=== PATIENT | female | born 1995 | race African-American/Black ===

== ENCOUNTER 2021-03-21 23:57 | Inpatient (IN) | payer MEDICAID ==
[~2021-03-21] VITALS: Ht 162.6 cm; Wt 64.0 kg
[~2021-03-21 23:57] MED LIST: AMLO10TA4 PO; CARV12.545 PO; CLON1PAT11 TP; ELVI1TAB3 PO; FURO20TA4 PO; HYDR100T26 PO
[2021-03-22] MEDS ORDERED: ONDANSETRON HCL 4MG/2ML INJ IV ONE (00:30)
[2021-03-22] MEDS ORDERED: MORPHINE SULFATE 4 MG/ML CPJ (NOT FOR IM USE) IV ONE (00:30)
[2021-03-22] MEDS ORDERED: FAMOTIDINE 20MG/2ML VIAL IV ONE (00:30)
[2021-03-22 01:04] LABS: EOSINOPHILS % 4.9 % (0.0-5.0); HEMATOCRIT. 24.2 % (36.0-48.0); HEMOGLOBIN. 8.2 g/dL (12.0-16.0); LYMPHOCYTES % 9.2 % (20.0-50.0); MEAN CORPUSCULAR HEMOGLOBIN 32.8 pg (28.0-32.0); MEAN CORPUSCULAR VOLUME 96.4 fL (81.0-99.0); MEAN PLATELET VOLUME 7.9 fl (7.4-10.4); MONOCYTES % 13.8 % (2.0-8.0); NEUTROPHILS % 71.1 % (40.0-76.0); PLATELET 139 x1000/uL (130-400); RED BLOOD CELL COUNT 2.51 mill/uL (4.2-5.4); RED CELL DISTRIBUTION WIDTH 14.9 % (11.6-14.6)
[2021-03-22 01:08] LABS: CHLORIDE 109 mEq/L (98-107)
[2021-03-22 01:28] LABS: HCG SCREEN NEGATIVE
[2021-03-22] MEDS ORDERED: MORPHINE SULFATE 2 MG/ML CPJ (NOT FOR IM USE) IV PRN (05:00)
[2021-03-22] MEDS ORDERED: MAGNESIUM/ALUMINUM HYDROXIDE/SIMETHICONE 30ML UDC PO PRN (05:00)
[2021-03-22] MEDS ORDERED: CLONIDINE 0.1MG TABLET PO PRN (05:00)
[2021-03-22] MEDS ORDERED: GUAIFENESIN 200MG/10ML SUGAR FREE UDC PO PRN (05:00)
[2021-03-22] MEDS ORDERED: ONDANSETRON HCL 4MG/2ML INJ IV PRN (05:00)
[2021-03-22] MEDS ORDERED: DOCUSATE SODIUM 100MG CAPSULE PO PRN (05:00)
[2021-03-22] MEDS ORDERED: ACETAMINOPHEN 325MG TABLET PO PRN (05:00)
[2021-03-22] MEDS ORDERED: HYDROCODONE/ACETAMINOPHEN 5/325MG TABLET PO PRN (05:00)
[2021-03-22] MEDS ORDERED: NALOXONE HCL 0.4MG/ML VIAL IV PRN (05:15)
[2021-03-22] MEDS ORDERED: AMLODIPINE 10MG TABLET PO SCH (05:30)
[2021-03-22] MEDS ORDERED: FUROSEMIDE 20MG TABLET PO SCH (05:30)
[2021-03-22 05:33] VITALS: BP 167/113
[2021-03-22] MEDS ORDERED: CARVEDILOL 12.5MG TABLET PO SCH (06:00)
[2021-03-22] MEDS ORDERED: HYDRALAZINE HCL 100MG TABLET PO SCH (06:00)
[2021-03-22] MEDS ORDERED: ASPIRIN 81MG EC TABLET PO SCH (09:00)
== END 2021-03-22 08:35 | disposition left against medical advice (07) | DRG 203 ==
LOC: ER 23:57 → MICUSO 03-22 02:15 → EDBEDREQ 03-22 02:17 → EDBEDREQTM 03-22 02:17
PROVIDERS: ADMIT Hospitalist; ATTEND Hospitalist
DX: R07.9 Chest pain, unspecified (principal); I13.0 Hypertensive heart and chronic kidney disease with heart failure and stage 1 through stage 4 chronic kidney disease, or unspecified chronic kidney disease; I50.9 Heart failure, unspecified; N18.9 Chronic kidney disease, unspecified; Z99.2 Dependence on renal dialysis; Z53.29 Procedure and treatment not carried out because of patient's decision for other reasons
CPT/HCPCS: 36415; 71045; 80053; 84484; 84703; 85025; 93005; 99285; J2270; J2405; J3490

== ENCOUNTER 2021-04-28 01:38 | Emergency (ER) | payer MEDICAID ==
[~2021-04-28] VITALS: Ht 162.6 cm; Wt 63.0 kg
[2021-04-28] MEDS ORDERED: ONDANSETRON 4MG ODT PO ONE (02:45)
[2021-04-28] MEDS ORDERED: MORPHINE SULFATE 10 MG/ML CPJ IM ONE (02:45)
[2021-04-28 03:02] LABS: BASOPHILS % 1.5 % (0.0-2.0); EOSINOPHILS % 5.1 % (0.0-5.0); HEMATOCRIT. 30.3 % (36.0-48.0); HEMOGLOBIN. 9.8 g/dL (12.0-16.0); LYMPHOCYTES % 13.9 % (20.0-50.0); MEAN CORPUSCULAR HEMOGLOBIN 31.8 pg (28.0-32.0); MEAN CORPUSCULAR VOLUME 98.1 fL (81.0-99.0); MEAN PLATELET VOLUME 7.7 fl (7.4-10.4); MONOCYTES % 7.1 % (2.0-8.0); NEUTROPHILS % 72.4 % (40.0-76.0); PLATELET 200 x1000/uL (130-400); RED BLOOD CELL COUNT 3.09 mill/uL (4.2-5.4); RED CELL DISTRIBUTION WIDTH 16.1 % (11.6-14.6)
[2021-04-28 03:04] LABS: CHLORIDE 105 mEq/L (98-107)
[2021-04-28] MEDS ORDERED: HYDROCODONE/APAP 7.5/325MG 1 TAB TABLET PO ONE (04:00)
[2021-04-28] MEDS ORDERED: HYDR-4001 MT (05:48)
[2021-04-28] MEDS ORDERED: CEPH500T MT (05:48)
[2021-04-28] MEDS ORDERED: IBUP-2029 MT (05:48)
[2021-04-28 06:05] VITALS: BP 116/66
== END 2021-04-28 06:06 | disposition home or self-care (01) ==
LOC: ER 01:38
DX: M79.601 Pain in right arm (principal); M79.89 Other specified soft tissue disorders; M79.641 Pain in right hand; M25.511 Pain in right shoulder; I13.2 Hypertensive heart and chronic kidney disease with heart failure and with stage 5 chronic kidney disease, or end stage renal disease; I50.9 Heart failure, unspecified; N18.6 End stage renal disease; Z99.2 Dependence on renal dialysis
CPT/HCPCS: 36415; 73080; 80053; 85025; 93971; 96372; 99285; J2270; Q0162; Z7610

== ENCOUNTER 2021-07-06 08:48 | Inpatient (IN) | payer MEDICAID ==
[~2021-07-06] VITALS: Ht 162.6 cm; Wt 79.8 kg
[~2021-07-06 08:48] MED LIST changes: -CARV12.545 PO; +CARV25TA47 MT; +ELVI1TAB3 MT; -ELVI1TAB3 PO; +HYDR-4001 MT; +IBUP-2029 MT; +OMEP40CA20 MT; +SODIUM CHLORIDE 0.9% 10ML VIAL ONE; +TRAM50TA3 MT; +VECURONIUM BROMIDE 10 MG/VIAL IV ONE
[2021-07-06] MEDS ORDERED: SODIUM CHLORIDE 0.9% 1000ML BAG (SEPSIS BOLUS) IV ONE (09:30)
[2021-07-06] MEDS ORDERED: LORAZEPAM 2MG/ML CPJ IV ONE ×2 (09:30→12:15)
[2021-07-06] MEDS ORDERED: HALOPERIDOL LACTATE 5MG/ML VIAL IM ONE (09:30)
[2021-07-06 09:47] LABS: BASOPHILS % 0.5 % (0.0-2.0); EOSINOPHILS % 1.5 % (0.0-5.0); HEMATOCRIT. 34.3 % (36.0-48.0); HEMOGLOBIN. 10.9 g/dL (12.0-16.0); LYMPHOCYTES % 18.1 % (20.0-50.0); MEAN CORPUSCULAR HEMOGLOBIN 30.9 pg (28.0-32.0); MEAN PLATELET VOLUME 6.9 fl (7.4-10.4); MONOCYTES % 11.4 % (2.0-8.0); NEUTROPHILS % 68.5 % (40.0-76.0); PLATELET 77 x1000/uL (130-400); RED BLOOD CELL COUNT 3.54 mill/uL (4.2-5.4); RED CELL DISTRIBUTION WIDTH 17.4 % (11.6-14.6)
[2021-07-06 09:53] LABS: CHLORIDE 108 mEq/L (98-107)
[2021-07-06 10:10] LABS: HCG SCREEN NEGATIVE
[2021-07-06] MEDS ORDERED: LABETALOL HCL 20MG/4ML CARPUJECT IV ONE (12:30)
[2021-07-06] MEDS ORDERED: LEVETIRACETAM 1000MG PREMIX 100 ML IV ONE (12:30)
[2021-07-06] MEDS ORDERED: ACETAMINOPHEN 650MG SUPP PR ONE (13:15)
[2021-07-06] MEDS ORDERED: HYDROCODONE/ACETAMINOPHEN 5/325MG TABLET PO PRN (14:00)
[2021-07-06] MEDS ORDERED: GUAIFENESIN 200MG/10ML SUGAR FREE UDC PO PRN (14:00)
[2021-07-06] MEDS ORDERED: ENOXAPARIN 40MG/0.4ML SYR SUBCUT SCH (14:00)
[2021-07-06] MEDS ORDERED: ACETAMINOPHEN 325MG TABLET PO PRN (14:00)
[2021-07-06] MEDS ORDERED: HYDRALAZINE 20MG/ML VIAL IV NR ×2 (14:45→18:45)
[2021-07-06 14:58] LABS: HEPATITIS B SURFACE ANTIGEN NEGATIVE
[2021-07-06] MEDS ORDERED: ENOXAPARIN 30MG/0.3ML SYR SUBCUT SCH (15:00)
[2021-07-06] MEDS ORDERED: ACETAMINOPHEN 650MG SUPP PR NR (19:00)
[2021-07-06] MEDS ORDERED: NICARDIPINE 40MG/200ML PREMIX 200 ML IV STA (19:16)
[2021-07-06] MEDS ORDERED: LORAZEPAM 2MG/ML CPJ ONE ×3 (19:22→19:32)
[2021-07-06] MEDS ORDERED: LORAZEPAM 2MG/ML CPJ IV PRN (19:30)
[2021-07-06] MEDS ORDERED: LEVETIRACETAM 500MG PREMIX 100 ML IV ONE (19:45)
[2021-07-06] MEDS ORDERED: PROPOFOL 200MG/20ML VIAL IV ONE (20:30)
[2021-07-06] MEDS ORDERED: PROPOFOL 10MG/ML 100ML 100 ML IV NR (20:30)
[2021-07-06] MEDS ORDERED: PROPOFOL 10MG/ML 100ML 100 ML IV PRN ×2 (20:30→23:00)
[2021-07-06] MEDS ORDERED: LEVETIRACETAM 500MG PREMIX 100 ML IV NR (21:00)
[2021-07-06 21:34] LABS: BG BASE EXCESS -10.5 mmol/L (-2.0-2.0); BG CARBOXYHEMOGLOBIN 0.5 % (0.5-1.5); BG DEOXYHEMOGLOBIN 3.9 % (0.0-5.0); BG FRACTION INSPIRED OXYGEN 50; BG HCO3 ACT 15.9 mmol/L (22.0-26.0); BG METHEMOGLOBIN 0.5 % (0.0-1.5); BG OXYGEN SATURATION 96.1 % (92.0-98.5); BG OXYHEMOGLOBIN 95.1 % (94.0-97.0); BG PCO2 37.3 mmHg (35.0-45.0); BG PH 7.248 (7.350-7.450); BG PO2 102.8 mmHg (75.0-100.0); BG TOTAL HEMOGLOBIN 11.5 g/dL (12.0-18.0); BG VENT MODE VENT - AC
[2021-07-06] MEDS ORDERED: PROPOFOL 10MG/ML 100ML 100 ML IV ONE (22:30)
[2021-07-06] MEDS ORDERED: FENTANYL CITRATE/PF 2,500 MCG in SODIUM CHLORIDE 0.9% 200 ML IV PRN (23:00)
[2021-07-06] MEDS ORDERED: MIDAZOLAM HCL 100 MG in DEXT 5% WATER 80 ML IV ONE (23:00)
[2021-07-06] MEDS ORDERED: IPRATROPIUM/ALBUTEROL 0.5-3(2.5)MG/3ML NEB HHN PRN (23:00)
[2021-07-06] MEDS ORDERED: NALOXONE HCL 0.4 MG/ML 1ML VIAL IV PRN (23:00)
[2021-07-07] MEDS: ACETAMINOPHEN 325MG TABLET PO PRN ×2 (03:23→09:19)
[2021-07-07] MEDS ORDERED: NICARDIPINE 100 MG in SODIUM CHLORIDE 0.9% 100 ML IV PRN (03:30)
[2021-07-07 06:41] LABS: BASOPHILS % 0.3 % (0.0-2.0); HEMATOCRIT. 26.6 % (36.0-48.0); HEMOGLOBIN. 8.7 g/dL (12.0-16.0); LYMPHOCYTES % 7.9 % (20.0-50.0); MEAN CORPUSCULAR HEMOGLOBIN 30.8 pg (28.0-32.0); MEAN CORPUSCULAR VOLUME 94.4 fL (81.0-99.0); MEAN PLATELET VOLUME 8.8 fl (7.4-10.4); NEUTROPHILS % 80.8 % (40.0-76.0); RED BLOOD CELL COUNT 2.82 mill/uL (4.2-5.4); RED CELL DISTRIBUTION WIDTH 17.9 % (11.6-14.6)
[2021-07-07 06:47] LABS: CHLORIDE 102 mEq/L (98-107)
[2021-07-07 06:53] LABS: PHOSPHORUS 5.2 mg/dL (2.5-4.9)
[2021-07-07 06:56] LABS: PLATELET 43 x1000/uL (130-400)
[2021-07-07] MEDS ORDERED: MIDAZOLAM 100MG/100ML PREMIX IV PRN (09:00)
[2021-07-07 09:49] LABS: BG BASE EXCESS 4.5 mmol/L (-2.0-2.0); BG CARBOXYHEMOGLOBIN 0.9 % (0.5-1.5); BG DEOXYHEMOGLOBIN 1.5 % (0.0-5.0); BG FRACTION INSPIRED OXYGEN 40; BG HCO3 ACT 28.2 mmol/L (22.0-26.0); BG METHEMOGLOBIN 0.5 % (0.0-1.5); BG OXYGEN SATURATION 98.5 % (92.0-98.5); BG OXYHEMOGLOBIN 97.1 % (94.0-97.0); BG PCO2 37.9 mmHg (35.0-45.0); BG PH 7.489 (7.350-7.450); BG PO2 126.3 mmHg (75.0-100.0); BG SAMPLE SITE RIGHT RADIAL; BG VENT MODE VENT - AC
[2021-07-07] MEDS: NICARDIPINE 40MG/200ML PREMIX 200 ML IV SCH ×2 (11:03→13:53)
[2021-07-07] MEDS: PANTOPRAZOLE 40MG DR TABLET PO SCH (11:41)
[2021-07-07] MEDS ORDERED: SULFAMETHOXAZOLE/TRIMETHOPRIM 800/160MG TABLET PO SCH (12:15)
[2021-07-07] MEDS ORDERED: SULFAMETHOXAZOLE/TRIMETHOPRIM 200-40 MG/5ML 5ML ORAL SYR PO SCH (12:15)
[2021-07-07] MEDS: AZITHROMYCIN 500 MG TABLET PO SCH (12:21)
[2021-07-07] MEDS ORDERED: SULFAMETHOXAZOLE/TRIMETHOPRIM 320 MG in DEXT 5% WATER 500 ML IV SCH (13:00)
[2021-07-07] MEDS: CEFEPIME 1,000 MG in DEXTROSE 5% WATER 50 ML IV SCH (14:15)
[2021-07-07 14:51] LABS: BASOPHILS % 0.7 % (0.0-2.0); EOSINOPHILS % 0.3 % (0.0-5.0); HEMATOCRIT. 22.4 % (36.0-48.0); HEMOGLOBIN. 7.4 g/dL (12.0-16.0); LYMPHOCYTES % 11.9 % (20.0-50.0); MEAN CORPUSCULAR HEMOGLOBIN 30.7 pg (28.0-32.0); MEAN CORPUSCULAR VOLUME 93.3 fL (81.0-99.0); MEAN PLATELET VOLUME 8.5 fl (7.4-10.4); MONOCYTES % 13.9 % (2.0-8.0); NEUTROPHILS % 73.2 % (40.0-76.0); RED CELL DISTRIBUTION WIDTH 18.2 % (11.6-14.6)
[2021-07-07 15:00] LABS: PLATELET 48 x1000/uL (130-400)
[2021-07-07] MEDS: SULFAMETHOXAZOLE/TRIMETHOPRIM 320 MG in DEXT 5% WATER 500 ML IV SCH (15:27)
[2021-07-07 16:36] LABS: PLATELET ESTIMATE MARKEDLY DECREASED
[2021-07-07] MEDS: IPRATROPIUM/ALBUTEROL 0.5-3(2.5)MG/3ML NEB HHN SCH (20:55)
[2021-07-08] VITALS (48 sets, daily range): BP systolic 95–180; BP diastolic 46–100
[2021-07-08] MEDS: EPOETIN ALFA-EPBX 10,000 UNIT/ML VIAL SUBCUT SCH (01:05)
[2021-07-08] MEDS: IPRATROPIUM/ALBUTEROL 0.5-3(2.5)MG/3ML NEB HHN SCH ×4 (02:44→21:47)
[2021-07-08 05:06] LABS: HEMATOCRIT. 21.1 % (36.0-48.0); MEAN CORPUSCULAR HEMOGLOBIN 31.3 pg (28.0-32.0); MEAN CORPUSCULAR VOLUME 93.7 fL (81.0-99.0); MEAN PLATELET VOLUME 8.8 fl (7.4-10.4); PLATELET 51 x1000/uL (130-400); RED BLOOD CELL COUNT 2.25 mill/uL (4.2-5.4)
[2021-07-08] MEDS: PANTOPRAZOLE 40MG DR TABLET PO SCH (06:06)
[2021-07-08] MEDS: AZITHROMYCIN 500 MG TABLET PO SCH (08:37)
[2021-07-08 09:23] LABS: BG BASE EXCESS -1.9 mmol/L (-2.0-2.0); BG CARBOXYHEMOGLOBIN 1.1 % (0.5-1.5); BG DEOXYHEMOGLOBIN 1.9 % (0.0-5.0); BG FRACTION INSPIRED OXYGEN 35; BG HCO3 ACT 22.9 mmol/L (22.0-26.0); BG METHEMOGLOBIN 0.3 % (0.0-1.5); BG OXYGEN SATURATION 98.1 % (92.0-98.5); BG OXYHEMOGLOBIN 96.7 % (94.0-97.0); BG PCO2 39.4 mmHg (35.0-45.0); BG PH 7.383 (7.350-7.450); BG PO2 113.1 mmHg (75.0-100.0); BG SAMPLE SITE RIGHT RADIAL; BG TOTAL HEMOGLOBIN 7.5 g/dL (12.0-18.0); BG VENT MODE VENT - AC
[2021-07-08] MEDS: AMLODIPINE 2.5MG TABLET PO SCH ×2 (10:28→21:45)
[2021-07-08] MEDS: CEFEPIME 1,000 MG in DEXTROSE 5% WATER 50 ML IV SCH (13:21)
[2021-07-08] MEDS: SULFAMETHOXAZOLE/TRIMETHOPRIM 320 MG in DEXT 5% WATER 500 ML IV SCH (13:21)
[2021-07-08] MEDS: VANCOMYCIN HCL 1000 MG/20 ML ORAL PO SCH ×3 (13:21→21:45)
[2021-07-08] MEDS: FENTANYL CITRATE 2,500 MCG in SODIUM CHLORIDE 0.9% 200 ML IV PRN (13:42)
[2021-07-08 14:42] LABS: PLATELET ESTIMATE MARKEDLY DECREASED
[2021-07-08] MEDS: MIDAZOLAM HCL 100 MG in SODIUM CHLORIDE 0.9% 80 ML IV PRN (16:16)
[2021-07-08] MEDS: NICARDIPINE 50 MG in SODIUM CHLORIDE 0.9% 250 ML IV PRN (16:18)
[2021-07-09] VITALS (43 sets, daily range): BP systolic 136–168; BP diastolic 70–97
[2021-07-09] MEDS: IPRATROPIUM/ALBUTEROL 0.5-3(2.5)MG/3ML NEB HHN SCH ×4 (00:36→21:55)
[2021-07-09] MEDS: PANTOPRAZOLE 40MG DR TABLET PO SCH (05:33)
[2021-07-09 06:07] LABS: BASOPHILS % 0.7 % (0.0-2.0); EOSINOPHILS % 3.3 % (0.0-5.0); HEMATOCRIT. 23.9 % (36.0-48.0); LYMPHOCYTES % 8.5 % (20.0-50.0); MEAN CORPUSCULAR HEMOGLOBIN 31.1 pg (28.0-32.0); MEAN CORPUSCULAR VOLUME 93.4 fL (81.0-99.0); MEAN PLATELET VOLUME 8.2 fl (7.4-10.4); MONOCYTES % 10.9 % (2.0-8.0); NEUTROPHILS % 76.6 % (40.0-76.0); PLATELET 83 x1000/uL (130-400); RED BLOOD CELL COUNT 2.56 mill/uL (4.2-5.4); RED CELL DISTRIBUTION WIDTH 17.6 % (11.6-14.6)
[2021-07-09 07:10] LABS: PHOSPHORUS 8.9 mg/dL (2.5-4.9)
[2021-07-09] MEDS: FENTANYL CITRATE 2,500 MCG in SODIUM CHLORIDE 0.9% 200 ML IV PRN ×2 (08:06→16:15)
[2021-07-09 09:17] LABS: BG BASE EXCESS -5.1 mmol/L (-2.0-2.0); BG CARBOXYHEMOGLOBIN 0.4 % (0.5-1.5); BG DEOXYHEMOGLOBIN 2.5 % (0.0-5.0); BG FRACTION INSPIRED OXYGEN 35; BG HCO3 ACT 19.3 mmol/L (22.0-26.0); BG METHEMOGLOBIN 0.3 % (0.0-1.5); BG OXYGEN SATURATION 97.5 % (92.0-98.5); BG OXYHEMOGLOBIN 96.8 % (94.0-97.0); BG PCO2 32.4 mmHg (35.0-45.0); BG PH 7.392 (7.350-7.450); BG PO2 109.8 mmHg (75.0-100.0); BG SAMPLE SITE RIGHT RADIAL; BG TOTAL HEMOGLOBIN 6.9 g/dL (12.0-18.0); BG TOTAL RESPIRATORY RATE 26 b/min; BG VENT MODE VENT - AC
[2021-07-09] MEDS: AMLODIPINE 2.5MG TABLET PO SCH ×2 (09:21→21:37)
[2021-07-09] MEDS: CALCIUM ACETATE 667MG CAPSULE PO SCH ×3 (09:21→16:15)
[2021-07-09] MEDS: AZITHROMYCIN 500 MG TABLET PO SCH (09:21)
[2021-07-09] MEDS: VANCOMYCIN HCL 1000 MG/20 ML ORAL PO SCH ×4 (09:22→21:39)
[2021-07-09] MEDS: FOLIC ACID/VITAMIN B COMP W-C TABLET PO SCH (09:22)
[2021-07-09] MEDS: MIDAZOLAM HCL 100 MG in SODIUM CHLORIDE 0.9% 80 ML IV PRN ×2 (09:23→20:37)
[2021-07-09] MEDS: NICARDIPINE 50 MG in SODIUM CHLORIDE 0.9% 250 ML IV PRN ×2 (09:24→20:38)
[2021-07-09] MEDS: LOSARTAN POTASSIUM 100 MG TABLET PO SCH (11:42)
[2021-07-09] MEDS: CARVEDILOL 6.25 MG TABLET PO SCH ×2 (11:43→21:38)
[2021-07-09] MEDS: CEFEPIME 1,000 MG in DEXTROSE 5% WATER 50 ML IV SCH (13:05)
[2021-07-09] MEDS: SULFAMETHOXAZOLE/TRIMETHOPRIM 320 MG in DEXT 5% WATER 500 ML IV SCH (13:05)
[2021-07-09] MEDS: ENOXAPARIN 30MG/0.3ML SYR SUBCUT SCH (21:00)
[2021-07-10] VITALS (85 sets, daily range): BP systolic 139–186; BP diastolic 55–144
[2021-07-10] MEDS: FENTANYL CITRATE 2,500 MCG in SODIUM CHLORIDE 0.9% 200 ML IV PRN ×4 (00:51→23:38)
[2021-07-10] MEDS: IPRATROPIUM/ALBUTEROL 0.5-3(2.5)MG/3ML NEB HHN SCH ×4 (01:34→20:59)
[2021-07-10] MEDS: MIDAZOLAM HCL 100 MG in SODIUM CHLORIDE 0.9% 80 ML IV PRN ×2 (05:50→17:34)
[2021-07-10] MEDS: PANTOPRAZOLE 40MG DR TABLET PO SCH (06:01)
[2021-07-10 06:02] LABS: HEMATOCRIT. 21.6 % (36.0-48.0); HEMOGLOBIN. 7.2 g/dL (12.0-16.0); MEAN CORPUSCULAR HEMOGLOBIN 31.1 pg (28.0-32.0); MEAN CORPUSCULAR VOLUME 93.9 fL (81.0-99.0); MEAN PLATELET VOLUME 7.8 fl (7.4-10.4); PLATELET 112 x1000/uL (130-400); RED BLOOD CELL COUNT 2.31 mill/uL (4.2-5.4)
[2021-07-10] MEDS: NICARDIPINE 50 MG in SODIUM CHLORIDE 0.9% 250 ML IV PRN ×2 (06:02→23:37)
[2021-07-10 07:44] LABS: BG BASE EXCESS 0.5 mmol/L (-2.0-2.0); BG CARBOXYHEMOGLOBIN 0.2 % (0.5-1.5); BG DEOXYHEMOGLOBIN 12.2 % (0.0-5.0); BG HCO3 ACT 24.7 mmol/L (22.0-26.0); BG METHEMOGLOBIN 0.1 % (0.0-1.5); BG OXYGEN SATURATION 87.8 % (92.0-98.5); BG OXYHEMOGLOBIN 87.5 % (94.0-97.0); BG PCO2 37.6 mmHg (35.0-45.0); BG PH 7.435 (7.350-7.450); BG SAMPLE SITE RIGHT RADIAL; BG TOTAL HEMOGLOBIN 7.7 g/dL (12.0-18.0); BG VENT MODE VENT - AC
[2021-07-10] MEDS: LOSARTAN POTASSIUM 100 MG TABLET PO SCH (08:47)
[2021-07-10] MEDS: CALCIUM ACETATE 667MG CAPSULE PO SCH ×3 (08:48→16:10)
[2021-07-10] MEDS: FOLIC ACID/VITAMIN B COMP W-C TABLET PO SCH (08:48)
[2021-07-10] MEDS: VANCOMYCIN HCL 1000 MG/20 ML ORAL PO SCH ×4 (08:48→20:40)
[2021-07-10] MEDS ORDERED: CARVEDILOL 6.25 MG TABLET PO NR (09:15)
[2021-07-10] MEDS ORDERED: AMLODIPINE 2.5MG TABLET PO NR (09:15)
[2021-07-10] MEDS: AZITHROMYCIN 500 MG TABLET PO SCH (09:29)
[2021-07-10 11:09] LABS: TOTAL IRON BINDING CAPACITY 126 ug/dL (250-450)
[2021-07-10 11:42] LABS: VITAMIN B12 SERUM 1694 pg/mL (211-911)
[2021-07-10] MEDS: SULFAMETHOXAZOLE/TRIMETHOPRIM 320 MG in DEXT 5% WATER 500 ML IV SCH (12:38)
[2021-07-10] MEDS: CEFEPIME 1,000 MG in DEXTROSE 5% WATER 50 ML IV SCH (14:37)
[2021-07-10 16:22] LABS: PLATELET ESTIMATE DECREASED
[2021-07-10] MEDS: AMLODIPINE 5MG TABLET PO SCH (20:38)
[2021-07-10] MEDS: CARVEDILOL 12.5MG TABLET PO SCH (20:38)
[2021-07-10] MEDS: ACETAMINOPHEN 325MG TABLET PO PRN (20:38)
[2021-07-10] MEDS: EPOETIN ALFA-EPBX 10,000 UNIT/ML VIAL SUBCUT SCH (20:40)
[2021-07-11] VITALS (113 sets, daily range): BP systolic 126–198; BP diastolic 68–112
[2021-07-11] MEDS: IPRATROPIUM/ALBUTEROL 0.5-3(2.5)MG/3ML NEB HHN SCH ×4 (00:58→20:34)
[2021-07-11] MEDS: MIDAZOLAM HCL 100 MG in SODIUM CHLORIDE 0.9% 80 ML IV PRN (04:50)
[2021-07-11 06:09] LABS: HEMOGLOBIN. 8.4 g/dL (12.0-16.0); MEAN CORPUSCULAR HEMOGLOBIN 31.1 pg (28.0-32.0); MEAN PLATELET VOLUME 8.7 fl (7.4-10.4); PLATELET 193 x1000/uL (130-400); RED BLOOD CELL COUNT 2.72 mill/uL (4.2-5.4)
[2021-07-11] MEDS: PANTOPRAZOLE 40MG DR TABLET PO SCH (06:13)
[2021-07-11] MEDS: AZITHROMYCIN 500 MG TABLET PO SCH (08:51)
[2021-07-11] MEDS: FOLIC ACID/VITAMIN B COMP W-C TABLET PO SCH (08:51)
[2021-07-11] MEDS: CALCIUM ACETATE 667MG CAPSULE PO SCH ×3 (08:51→17:05)
[2021-07-11] MEDS: LOSARTAN POTASSIUM 100 MG TABLET PO SCH (08:51)
[2021-07-11] MEDS: CARVEDILOL 12.5MG TABLET PO SCH (08:52)
[2021-07-11] MEDS: VANCOMYCIN HCL 1000 MG/20 ML ORAL PO SCH ×4 (08:52→20:39)
[2021-07-11] MEDS: AMLODIPINE 5MG TABLET PO SCH ×2 (08:52→20:38)
[2021-07-11] MEDS: HYDRALAZINE HCL 25MG TABLET PO SCH ×2 (09:00→14:00)
[2021-07-11] MEDS ORDERED: CARVEDILOL 12.5MG TABLET PO NR (09:00)
[2021-07-11] MEDS ORDERED: CARVEDILOL 12.5MG TABLET PO SCH ×2 (09:00→21:00)
[2021-07-11] MEDS: FERROUS SULFATE 325MG TABLET PO SCH ×2 (09:00→17:05)
[2021-07-11] MEDS: NICARDIPINE 50 MG in SODIUM CHLORIDE 0.9% 250 ML IV PRN ×3 (09:24→20:46)
[2021-07-11 12:17] LABS: BG BASE EXCESS 4.7 mmol/L (-2.0-2.0); BG CARBOXYHEMOGLOBIN 0.3 % (0.5-1.5); BG DEOXYHEMOGLOBIN 10.8 % (0.0-5.0); BG FRACTION INSPIRED OXYGEN 30; BG HCO3 ACT 29.7 mmol/L (22.0-26.0); BG METHEMOGLOBIN 0.1 % (0.0-1.5); BG OXYGEN SATURATION 89.2 % (92.0-98.5); BG OXYHEMOGLOBIN 88.8 % (94.0-97.0); BG PCO2 46.3 mmHg (35.0-45.0); BG PH 7.425 (7.350-7.450); BG PO2 61.9 mmHg (75.0-100.0); BG SAMPLE SITE RIGHT RADIAL; BG TOTAL HEMOGLOBIN 9.5 g/dL (12.0-18.0); BG TOTAL RESPIRATORY RATE 40 b/min; BG VENT MODE VENT - CPAP
[2021-07-11] MEDS: SULFAMETHOXAZOLE/TRIMETHOPRIM 320 MG in DEXT 5% WATER 500 ML IV SCH (12:49)
[2021-07-11] MEDS: CEFEPIME 1,000 MG in DEXTROSE 5% WATER 50 ML IV SCH (13:42)
[2021-07-11] MEDS: HYDRALAZINE 20MG/ML VIAL IV SCH ×3 (15:37→23:42)
[2021-07-11] MEDS: DILTIAZEM HCL 5MG/ML 5ML VIAL IV SCH ×3 (15:37→23:41)
[2021-07-11 17:05] LABS: PLATELET ESTIMATE NORMAL
[2021-07-11 17:23] LABS: BG BASE EXCESS 5.7 mmol/L (-2.0-2.0); BG CARBOXYHEMOGLOBIN 0.3 % (0.5-1.5); BG DEOXYHEMOGLOBIN 4.9 % (0.0-5.0); BG FRACTION INSPIRED OXYGEN 100; BG HCO3 ACT 30.3 mmol/L (22.0-26.0); BG METHEMOGLOBIN 0.6 % (0.0-1.5); BG OXYGEN SATURATION 95.1 % (92.0-98.5); BG OXYHEMOGLOBIN 94.2 % (94.0-97.0); BG PCO2 44.6 mmHg (35.0-45.0); BG PO2 80.7 mmHg (75.0-100.0); BG SAMPLE SITE RIGHT RADIAL; BG TOTAL HEMOGLOBIN 9.7 g/dL (12.0-18.0); BG VENT MODE MASK - BIPAP
[2021-07-11] MEDS ORDERED: LEVETIRACETAM 500MG/5ML CUP PO SCH (21:00)
[2021-07-11] MEDS: ONDANSETRON HCL 4MG/2ML INJ IV PRN (21:17)
[2021-07-12] VITALS (62 sets, daily range): BP systolic 120–184; BP diastolic 54–104
[2021-07-12 00:27] LABS: BG BASE EXCESS 6.5 mmol/L (-2.0-2.0); BG CARBOXYHEMOGLOBIN 0.3 % (0.5-1.5); BG DEOXYHEMOGLOBIN 16.1 % (0.0-5.0); BG HCO3 ACT 30.9 mmol/L (22.0-26.0); BG METHEMOGLOBIN 0.1 % (0.0-1.5); BG OXYGEN SATURATION 83.8 % (92.0-98.5); BG OXYHEMOGLOBIN 83.5 % (94.0-97.0); BG PCO2 44.5 mmHg (35.0-45.0); BG PO2 51.2 mmHg (75.0-100.0); BG TOTAL HEMOGLOBIN 8.6 g/dL (12.0-18.0)
[2021-07-12] MEDS: IPRATROPIUM/ALBUTEROL 0.5-3(2.5)MG/3ML NEB HHN SCH ×4 (01:37→20:30)
[2021-07-12] MEDS: NICARDIPINE 50 MG in SODIUM CHLORIDE 0.9% 250 ML IV PRN ×2 (01:52→23:13)
[2021-07-12] MEDS: HYDRALAZINE 20MG/ML VIAL IV SCH ×3 (06:00→21:05)
[2021-07-12 06:23] LABS: HEMATOCRIT. 23.3 % (36.0-48.0); HEMOGLOBIN. 7.8 g/dL (12.0-16.0); MEAN CORPUSCULAR HEMOGLOBIN 31.1 pg (28.0-32.0); MEAN CORPUSCULAR VOLUME 92.4 fL (81.0-99.0); MEAN PLATELET VOLUME 8.3 fl (7.4-10.4); PLATELET 261 x1000/uL (130-400); RED BLOOD CELL COUNT 2.52 mill/uL (4.2-5.4); RED CELL DISTRIBUTION WIDTH 16.8 % (11.6-14.6)
[2021-07-12] MEDS: PANTOPRAZOLE 40MG DR TABLET PO SCH (06:30)
[2021-07-12 08:02] LABS: BG BASE EXCESS 4.7 mmol/L (-2.0-2.0); BG CARBOXYHEMOGLOBIN 0.1 % (0.5-1.5); BG DEOXYHEMOGLOBIN 9.7 % (0.0-5.0); BG HCO3 ACT 28.9 mmol/L (22.0-26.0); BG METHEMOGLOBIN 0.1 % (0.0-1.5); BG OXYGEN SATURATION 90.3 % (92.0-98.5); BG OXYHEMOGLOBIN 90.1 % (94.0-97.0); BG PCO2 41.5 mmHg (35.0-45.0); BG PH 7.461 (7.350-7.450); BG PO2 58.6 mmHg (75.0-100.0); BG SAMPLE SITE RIGHT RADIAL; BG TOTAL HEMOGLOBIN 8.3 g/dL (12.0-18.0); BG VENT MODE VAPOTHERM
[2021-07-12] MEDS: LOSARTAN POTASSIUM 100 MG TABLET PO SCH (09:00)
[2021-07-12] MEDS: FOLIC ACID/VITAMIN B COMP W-C TABLET PO SCH (09:00)
[2021-07-12] MEDS: CALCIUM ACETATE 667MG CAPSULE PO SCH ×3 (09:00→21:07)
[2021-07-12] MEDS: FERROUS SULFATE 325MG TABLET PO SCH ×2 (09:00→21:07)
[2021-07-12] MEDS: VANCOMYCIN HCL 1000 MG/20 ML ORAL PO SCH ×4 (09:00→21:07)
[2021-07-12] MEDS: LEVETIRACETAM 250 MG in SODIUM CHLORIDE 0.9% 100 ML IV SCH ×2 (09:48→21:57)
[2021-07-12] MEDS: METOPROLOL TARTRATE 5MG/5ML VIAL IV SCH ×3 (10:52→21:06)
[2021-07-12 11:27] LABS: PLATELET ESTIMATE NORMAL
[2021-07-12] MEDS: DILTIAZEM HCL 5MG/ML 5ML VIAL IV SCH ×4 (12:00→21:06)
[2021-07-12] MEDS: SULFAMETHOXAZOLE/TRIMETHOPRIM 320 MG in DEXT 5% WATER 500 ML IV SCH (12:46)
[2021-07-12] MEDS: EPOETIN ALFA-EPBX 10,000 UNIT/ML VIAL SUBCUT SCH (21:07)
[2021-07-12] MEDS: LORAZEPAM 2MG/ML CPJ IV PRN (22:19)
[2021-07-13] VITALS (68 sets, daily range): BP systolic 101–194; BP diastolic 40–134
[2021-07-13] MEDS: METOPROLOL TARTRATE 5MG/5ML VIAL IV SCH ×4 (00:39→18:02)
[2021-07-13] MEDS: HYDRALAZINE 20MG/ML VIAL IV SCH ×4 (00:39→18:02)
[2021-07-13] MEDS: DILTIAZEM HCL 5MG/ML 5ML VIAL IV SCH ×6 (00:40→20:35)
[2021-07-13] MEDS: IPRATROPIUM/ALBUTEROL 0.5-3(2.5)MG/3ML NEB HHN SCH ×4 (01:33→20:09)
[2021-07-13 05:17] LABS: HEMATOCRIT. 24.4 % (36.0-48.0); HEMOGLOBIN. 8.1 g/dL (12.0-16.0); MEAN CORPUSCULAR HEMOGLOBIN 30.7 pg (28.0-32.0); MEAN CORPUSCULAR VOLUME 92.7 fL (81.0-99.0); MEAN PLATELET VOLUME 8.1 fl (7.4-10.4); PLATELET 429 x1000/uL (130-400); RED BLOOD CELL COUNT 2.63 mill/uL (4.2-5.4); RED CELL DISTRIBUTION WIDTH 16.9 % (11.6-14.6)
[2021-07-13] MEDS: PANTOPRAZOLE 40MG DR TABLET PO SCH ×3 (06:13→06:30)
[2021-07-13] MEDS: NICARDIPINE 50 MG in SODIUM CHLORIDE 0.9% 250 ML IV PRN (09:17)
[2021-07-13] MEDS: LEVETIRACETAM 250 MG in SODIUM CHLORIDE 0.9% 100 ML IV SCH ×2 (09:55→20:36)
[2021-07-13] MEDS: CALCIUM ACETATE 667MG CAPSULE PO SCH ×3 (09:56→18:01)
[2021-07-13] MEDS: VANCOMYCIN HCL 1000 MG/20 ML ORAL PO SCH ×4 (09:56→20:52)
[2021-07-13] MEDS: FERROUS SULFATE 325MG TABLET PO SCH ×2 (09:56→18:02)
[2021-07-13] MEDS: LOSARTAN POTASSIUM 100 MG TABLET PO SCH (09:56)
[2021-07-13] MEDS: FOLIC ACID/VITAMIN B COMP W-C TABLET PO SCH (09:56)
[2021-07-13 10:21] LABS: PLATELET ESTIMATE INCREASED
[2021-07-13] MEDS ORDERED: DILTIAZEM HCL 125 MG in DEXT 5% WATER 100 ML IV PRN (10:30)
[2021-07-13] MEDS: ONDANSETRON HCL 4MG/2ML INJ IV PRN ×2 (12:55→18:25)
[2021-07-13] MEDS: SULFAMETHOXAZOLE/TRIMETHOPRIM 320 MG in DEXT 5% WATER 500 ML IV SCH (12:57)
[2021-07-13] MEDS: DILTIAZEM HCL 60MG TABLET PO SCH ×2 (13:00→23:01)
[2021-07-13] MEDS: HYDRALAZINE HCL 100MG TABLET PO SCH ×2 (13:00→23:01)
[2021-07-13] MEDS ORDERED: KETOROLAC 30MG/ML VIAL IV PRN ×2 (19:15→19:30)
[2021-07-13] MEDS ORDERED: NALOXONE HCL 0.4MG/ML VIAL IV PRN (20:45)
[2021-07-13] MEDS: MORPHINE SULFATE 2 MG/ML CPJ (NOT FOR IM USE) IV PRN (20:51)
[2021-07-14] VITALS (11 sets, daily range): BP systolic 146–195; BP diastolic 81–114
[2021-07-14] MEDS: METOPROLOL TARTRATE 5MG/5ML VIAL IV SCH ×2 (00:08→05:39)
[2021-07-14] MEDS: HYDRALAZINE 20MG/ML VIAL IV SCH ×2 (00:21→05:39)
[2021-07-14] MEDS: DILTIAZEM HCL 5MG/ML 5ML VIAL IV SCH ×3 (01:20→08:00)
[2021-07-14] MEDS: IPRATROPIUM/ALBUTEROL 0.5-3(2.5)MG/3ML NEB HHN SCH ×4 (02:20→20:45)
[2021-07-14] MEDS: LORAZEPAM 2MG/ML CPJ IV PRN ×3 (03:14→21:13)
[2021-07-14 05:45] LABS: BASOPHILS % 0.3 % (0.0-2.0); EOSINOPHILS % 0.3 % (0.0-5.0); HEMATOCRIT. 22.9 % (36.0-48.0); HEMOGLOBIN. 7.6 g/dL (12.0-16.0); LYMPHOCYTES % 7.2 % (20.0-50.0); MEAN CORPUSCULAR VOLUME 93.3 fL (81.0-99.0); MEAN PLATELET VOLUME 7.6 fl (7.4-10.4); MONOCYTES % 10.1 % (2.0-8.0); NEUTROPHILS % 82.1 % (40.0-76.0); PLATELET 433 x1000/uL (130-400); RED BLOOD CELL COUNT 2.46 mill/uL (4.2-5.4); RED CELL DISTRIBUTION WIDTH 16.8 % (11.6-14.6)
[2021-07-14] MEDS: PANTOPRAZOLE 40MG DR TABLET PO SCH (05:51)
[2021-07-14] MEDS: HYDRALAZINE HCL 100MG TABLET PO SCH ×3 (05:57→22:00)
[2021-07-14] MEDS: DILTIAZEM HCL 60MG TABLET PO SCH (05:57)
[2021-07-14] MEDS: LEVETIRACETAM 250 MG in SODIUM CHLORIDE 0.9% 100 ML IV SCH ×2 (08:37→21:33)
[2021-07-14] MEDS: FOLIC ACID/VITAMIN B COMP W-C TABLET PO SCH (08:37)
[2021-07-14] MEDS: FERROUS SULFATE 325MG TABLET PO SCH ×2 (08:38→17:00)
[2021-07-14] MEDS: LOSARTAN POTASSIUM 100 MG TABLET PO SCH (08:38)
[2021-07-14] MEDS: CALCIUM ACETATE 667MG CAPSULE PO SCH ×3 (08:38→17:00)
[2021-07-14] MEDS: VANCOMYCIN HCL 1000 MG/20 ML ORAL PO SCH ×4 (08:38→21:00)
[2021-07-14] MEDS: ONDANSETRON HCL 4MG/2ML INJ IV PRN ×2 (09:34→13:51)
[2021-07-14] MEDS: MORPHINE SULFATE 2 MG/ML CPJ (NOT FOR IM USE) IV PRN (12:48)
[2021-07-14] MEDS: NIFEDIPINE XL 30MG TAB PO SCH ×2 (13:51→21:13)
[2021-07-14] MEDS: SULFAMETHOXAZOLE/TRIMETHOPRIM 320 MG in DEXT 5% WATER 500 ML IV SCH (13:51)
[2021-07-14] MEDS: HYDRALAZINE 20MG/ML VIAL IV PRN (20:21)
[2021-07-15] MEDS: IPRATROPIUM/ALBUTEROL 0.5-3(2.5)MG/3ML NEB HHN SCH ×4 (00:33→21:26)
[2021-07-15 01:06] VITALS: BP 182/91
[2021-07-15] MEDS: HYDRALAZINE 20MG/ML VIAL IV PRN ×2 (02:22→16:13)
[2021-07-15 04:42] VITALS: BP 153/88
[2021-07-15] MEDS: LORAZEPAM 2MG/ML CPJ IV PRN ×2 (04:44→14:56)
[2021-07-15 05:25] LABS: BASOPHILS % 0.5 % (0.0-2.0); EOSINOPHILS % 0.8 % (0.0-5.0); HEMATOCRIT. 26.4 % (36.0-48.0); HEMOGLOBIN. 8.6 g/dL (12.0-16.0); LYMPHOCYTES % 9.1 % (20.0-50.0); MEAN CORPUSCULAR HEMOGLOBIN 30.5 pg (28.0-32.0); MEAN CORPUSCULAR VOLUME 93.4 fL (81.0-99.0); MEAN PLATELET VOLUME 7.6 fl (7.4-10.4); MONOCYTES % 11.2 % (2.0-8.0); NEUTROPHILS % 78.4 % (40.0-76.0); PLATELET 502 x1000/uL (130-400); RED BLOOD CELL COUNT 2.82 mill/uL (4.2-5.4); RED CELL DISTRIBUTION WIDTH 16.7 % (11.6-14.6)
[2021-07-15] MEDS: PANTOPRAZOLE 40MG DR TABLET PO SCH (06:36)
[2021-07-15] MEDS: HYDRALAZINE HCL 100MG TABLET PO SCH ×3 (06:37→20:46)
[2021-07-15] MEDS: LEVETIRACETAM 250 MG in SODIUM CHLORIDE 0.9% 100 ML IV SCH (08:47)
[2021-07-15] MEDS: FOLIC ACID/VITAMIN B COMP W-C TABLET PO SCH (08:47)
[2021-07-15] MEDS: LOSARTAN POTASSIUM 100 MG TABLET PO SCH (08:48)
[2021-07-15] MEDS: FERROUS SULFATE 325MG TABLET PO SCH ×2 (08:48→16:13)
[2021-07-15] MEDS: NIFEDIPINE XL 30MG TAB PO SCH ×3 (08:48→23:51)
[2021-07-15] MEDS: CALCIUM ACETATE 667MG CAPSULE PO SCH ×3 (08:48→16:13)
[2021-07-15] MEDS: VANCOMYCIN HCL 1000 MG/20 ML ORAL PO SCH ×4 (08:49→20:45)
[2021-07-15 12:00] VITALS: BP 183/106
[2021-07-15] MEDS: SULFAMETHOXAZOLE/TRIMETHOPRIM 320 MG in DEXT 5% WATER 500 ML IV SCH (13:05)
[2021-07-15] MEDS ORDERED: GUAIFENESIN 200MG TABLET PO PRN (15:00)
[2021-07-15 16:00] VITALS: BP 188/102
[2021-07-15 20:00] VITALS: BP 194/131
[2021-07-15] MEDS: LEVETIRACETAM 250MG TABLET PO SCH (20:45)
[2021-07-15] MEDS: ENOXAPARIN 30MG/0.3ML SYR SUBCUT SCH (21:00)
[2021-07-15] MEDS ORDERED: HYDROXYZINE 25MG TABLET PO SCH (21:00)
[2021-07-15] MEDS: HYDROCODONE/ACETAMINOPHEN 5/325MG TABLET PO PRN (21:01)
[2021-07-16] VITALS: BP 89/50
[2021-07-16 00:30] VITALS: BP 190/114
[2021-07-16] MEDS: HYDRALAZINE 20MG/ML VIAL IV PRN ×2 (01:37→12:44)
[2021-07-16] MEDS: HYDROCODONE/ACETAMINOPHEN 5/325MG TABLET PO PRN (01:38)
[2021-07-16 04:00] VITALS: BP 190/114
[2021-07-16] MEDS: HYDRALAZINE HCL 100MG TABLET PO SCH ×2 (06:11→13:56)
[2021-07-16] MEDS: PANTOPRAZOLE 40MG DR TABLET PO SCH (06:11)
[2021-07-16] MEDS: NIFEDIPINE XL 30MG TAB PO SCH (06:12)
[2021-07-16 06:24] LABS: BASOPHILS % 0.9 % (0.0-2.0); EOSINOPHILS % 2.8 % (0.0-5.0); HEMATOCRIT. 22.7 % (36.0-48.0); HEMOGLOBIN. 7.5 g/dL (12.0-16.0); LYMPHOCYTES % 9.6 % (20.0-50.0); MEAN CORPUSCULAR HEMOGLOBIN 31.3 pg (28.0-32.0); MEAN CORPUSCULAR VOLUME 94.2 fL (81.0-99.0); MEAN PLATELET VOLUME 7.3 fl (7.4-10.4); MONOCYTES % 12.5 % (2.0-8.0); NEUTROPHILS % 74.2 % (40.0-76.0); PLATELET 390 x1000/uL (130-400); RED BLOOD CELL COUNT 2.41 mill/uL (4.2-5.4); RED CELL DISTRIBUTION WIDTH 16.4 % (11.6-14.6)
[2021-07-16 07:23] LABS: PHOSPHORUS 5.1 mg/dL (2.5-4.9)
[2021-07-16 08:00] VITALS: BP 207/126
[2021-07-16] MEDS: VANCOMYCIN HCL 1000 MG/20 ML ORAL PO SCH ×2 (09:00→12:49)
[2021-07-16] MEDS ORDERED: FERROUS SULFATE 325MG TABLET PO SCH (09:00)
[2021-07-16] MEDS: IPRATROPIUM/ALBUTEROL 0.5-3(2.5)MG/3ML NEB HHN SCH (09:09)
[2021-07-16] MEDS: LEVETIRACETAM 250MG TABLET PO SCH (11:26)
[2021-07-16] MEDS: LOSARTAN POTASSIUM 100 MG TABLET PO SCH (11:26)
[2021-07-16] MEDS: CALCIUM ACETATE 667MG CAPSULE PO SCH (11:26)
[2021-07-16] MEDS: FOLIC ACID/VITAMIN B COMP W-C TABLET PO SCH (11:26)
[2021-07-16] MEDS ORDERED: LABETALOL HCL 100MG TABLET PO NR (12:30)
[2021-07-16] MEDS ORDERED: CALC667C PO (13:56)
[2021-07-16] MEDS ORDERED: LOSA100T3 PO (13:56)
[2021-07-16] MEDS ORDERED: HYDR100T26 PO (13:56)
[2021-07-16] MEDS ORDERED: KEPP250 PO (13:56)
[2021-07-16] MEDS ORDERED: LABE100T5 PO (13:56)
[2021-07-16] MEDS ORDERED: NIFE-33 PO (13:56)
[2021-07-16] MEDS ORDERED: PANT40TA51 PO (13:56)
[2021-07-16] MEDS ORDERED: NEPVIT PO (13:56)
[2021-07-16] MEDS ORDERED: TOPUD PO (13:56)
[2021-07-16] MEDS ORDERED: FERR-63 PO (13:56)
[2021-07-16] MEDS ORDERED: VANJ5 PO (14:17)
[2021-07-16] MEDS ORDERED: SULF1TAB44 PO (14:17)
[2021-07-16] MEDS ORDERED: ELVI1TAB3 PO (14:21)
[2021-07-16] MEDS ORDERED: SULFAMETHOXAZOLE/TRIMETHOPRIM 800/160MG TABLET PO SCH (16:00)
[2021-07-16] MEDS ORDERED: NIFEDIPINE XL 30MG TAB PO SCH (16:00)
[2021-07-16] MEDS ORDERED: LABETALOL HCL 100MG TABLET PO SCH (21:00)
== END 2021-07-16 14:20 | disposition left against medical advice (07) | DRG 890 ==
LOC: ER 08:48 → SUPCPDRO 13:31 → MICUSO 15:52 → EDBEDREQSVC 15:54 → EDBEDREQ 15:54 → EDBEDREQTM 15:54 → EDBEDREQSVC 19:38 → EDBEDREQ 19:38 → EDBEDREQTM 19:38 → MICUSO 07-07 22:17 → 7EST 07-15 16:51
PROVIDERS: ADMIT Internal Medicine; ATTEND Internal Medicine
PROC: 5A1955Z Respiratory Ventilation, Greater than 96 Consecutive Hours (ICD-10-PCS; principal; 2021-07-06)
PROC: 0BH17EZ Insertion of Endotracheal Airway into Trachea, Via Natural or Artificial Opening (ICD-10-PCS; 2021-07-06)
PROC: 5A1D70Z Performance of Urinary Filtration, Intermittent, Less than 6 Hours Per Day (ICD-10-PCS; 2021-07-06)
PROC: 5A1D70Z Performance of Urinary Filtration, Intermittent, Less than 6 Hours Per Day (ICD-10-PCS; 2021-07-07)
PROC: 5A1D70Z Performance of Urinary Filtration, Intermittent, Less than 6 Hours Per Day (ICD-10-PCS; 2021-07-09)
PROC: 02HV33Z Insertion of Infusion Device into Superior Vena Cava, Percutaneous Approach (ICD-10-PCS; 2021-07-11)
PROC: B548ZZA Ultrasonography of Superior Vena Cava, Guidance (ICD-10-PCS; 2021-07-11)
PROC: 5A09357 Assistance with Respiratory Ventilation, Less than 24 Consecutive Hours, Continuous Positive Airway Pressure (ICD-10-PCS; 2021-07-11)
PROC: 5A1D70Z Performance of Urinary Filtration, Intermittent, Less than 6 Hours Per Day (ICD-10-PCS; 2021-07-11)
PROC: 4A10X4Z Monitoring of Central Nervous Electrical Activity, External Approach (ICD-10-PCS; 2021-07-11)
PROC: 5A0945A Assistance with Respiratory Ventilation, 24-96 Consecutive Hours, High Flow/Velocity Cannula (ICD-10-PCS; 2021-07-12)
PROC: 5A1D70Z Performance of Urinary Filtration, Intermittent, Less than 6 Hours Per Day (ICD-10-PCS; 2021-07-13)
PROC: 5A1D70Z Performance of Urinary Filtration, Intermittent, Less than 6 Hours Per Day (ICD-10-PCS; 2021-07-16)
DX: A41.4 Sepsis due to anaerobes (principal); B20 Human immunodeficiency virus [HIV] disease; J96.01 Acute respiratory failure with hypoxia; G93.41 Metabolic encephalopathy; E44.0 Moderate protein-calorie malnutrition; R65.20 Severe sepsis without septic shock; I50.23 Acute on chronic systolic (congestive) heart failure; A04.72 Enterocolitis due to Clostridium difficile, not specified as recurrent; G40.901 Epilepsy, unspecified, not intractable, with status epilepticus; J18.9 Pneumonia, unspecified organism; D69.6 Thrombocytopenia, unspecified; I27.20 Pulmonary hypertension, unspecified; K72.90 Hepatic failure, unspecified without coma; N18.6 End stage renal disease; R18.8 Other ascites; I13.2 Hypertensive heart and chronic kidney disease with heart failure and with stage 5 chronic kidney disease, or end stage renal disease; Z53.29 Procedure and treatment not carried out because of patient's decision for other reasons; D63.8 Anemia in other chronic diseases classified elsewhere; D50.9 Iron deficiency anemia, unspecified; I07.1 Rheumatic tricuspid insufficiency; Z20.822 Contact with and (suspected) exposure to COVID-19; E78.5 Hyperlipidemia, unspecified; I16.1 Hypertensive emergency; Z78.1 Physical restraint status; Z79.899 Other long term (current) drug therapy; Z82.49 Family history of ischemic heart disease and other diseases of the circulatory system; Z99.2 Dependence on renal dialysis; Z91.15 Patient's noncompliance with renal dialysis
CPT/HCPCS: 36415; 36600; 71045; 74176; 76937; 80048; 80053; 82140; 82375; 82607; 82728; 82805; 82962; 83540; 83550; 83605; 83735; 84100; 84145; 84478; 84484; 84703; 85025; 85044; 86705; 86709; 86803; 87015; 87045; 87340; 87426; 87427; 87449; 87493; 92610; 93005; 93306; 94002; 94003; 94640; 95816; 99291; A6261; C1725; J0360; J0692; J0885; J1630; J1650; J1885; J1953; J2060; J2250; J2270; J2405; J2704; J3010; J3370; J3490; J7030; J7040; J7050; J7060